=== PATIENT | female | born 1960 | race Two or more races ===

== ENCOUNTER 2017-09-08 13:32 | Outpatient (CLI) | payer OTHER ==
[~2017-09-08 13:32] MED LIST: AMBIEN CR12.5 MG/BL PO; AVAPRO300 MG; BISOPROLOL/HCTZ1 TA1; CELEBREX100 MG PO; CLONIDINE HCL0.1 MG; DIAZEPAM10 MG PO; DIOVAN HCT 320/1 TA1; INTESTINEX1 CA1 PO; KETO10TA2 PO; LIPITOR20 MG; METFORMIN HCL500 M2; METOPROLOL SUCC50 MG; MOTRIN800 MG PO; ORPH100T PO; PREDNISONE10 MG PO; SKELAXIN800 MG PO; TUSSIONEX PENNKI5 ML PO; VISTARIL50 MG PO; ZIAC 2.5-6.25 M1 TAB; ZITHROMAX500 MG PO
== END 2017-09-08 14:36 | disposition home or self-care (01) ==
LOC: RAD 501 13:32
DX: M19.90 Unspecified osteoarthritis, unspecified site (principal); M54.5 Low back pain

== ENCOUNTER 2017-12-19 08:41 | Outpatient (CLI) | payer OTHER | END 2017-12-19 08:57 | disposition home or self-care (01) | LOC: MAMO-SONO 08:41 | DX: Z12.31 Encounter for screening mammogram for malignant neoplasm of breast (principal); M81.0 Age-related osteoporosis without current pathological fracture ==

== ENCOUNTER 2017-12-19 11:10 | Outpatient (CLI) | payer OTHER | END 2017-12-19 11:20 | disposition home or self-care (01) | LOC: RAD 11:10 | DX: M54.2 Cervicalgia (principal) ==

== ENCOUNTER 2017-12-24 08:23 | Outpatient (CLI) | payer OTHER | END 2017-12-24 08:36 | disposition home or self-care (01) | LOC: SONOGRAMA 08:23 | DX: R10.2 Pelvic and perineal pain (principal) ==

== ENCOUNTER → 2018-01-27 | Emergency (ER) | payer OTHER ==
[~2018-01-27] VITALS: Ht 162.6 cm; Wt 77.1 kg
== END | disposition home or self-care (01) ==
LOC: ER 13:02
DX: B34.9 Viral infection, unspecified (principal)

== ENCOUNTER → 2018-07-02 | Emergency (ER) | payer OTHER ==
[~2018-07-02] VITALS: Ht 162.6 cm; Wt 77.1 kg
[~2018-07-02] MED LIST changes: +AVAPRO75 MG
== END | disposition left against medical advice (07) ==
LOC: ER 00:07
DX: Z53.20 Procedure and treatment not carried out because of patient's decision for unspecified reasons (principal)

== ENCOUNTER 2018-10-15 12:48 | Emergency (ER) | payer OTHER ==
[~2018-10-15] VITALS: Ht 340.4 cm; Wt 74.8 kg
[2018-10-15] MEDS ORDERED: AVAPRO75 MG (12:55)
== END 2018-10-15 14:23 | disposition home or self-care (01) ==
LOC: ER 12:48
DX: S80.01XA Contusion of right knee, initial encounter (principal); S30.0XXA Contusion of lower back and pelvis, initial encounter; W18.39XA Other fall on same level, initial encounter; Y93.89 Activity, other specified; Y92.69 Other specified industrial and construction area as the place of occurrence of the external cause; Y99.8 Other external cause status

== ENCOUNTER → 2019-03-21 | Emergency (ER) | payer OTHER ==
[~2019-03-21] VITALS: Ht 162.6 cm; Wt 79.4 kg
== END | disposition home or self-care (01) ==
LOC: ER 22:00
DX: R06.02 Shortness of breath (principal)

== ENCOUNTER 2020-10-25 08:59 | Emergency (ER) | payer OTHER ==
[~2020-10-25] VITALS: Ht 162.6 cm; Wt 77.1 kg
== END 2020-10-25 12:23 | disposition home or self-care (01) ==
LOC: ER 08:59
DX: R53.81 Other malaise (principal); R51.9 Headache, unspecified; Z11.52 Encounter for screening for COVID-19

== ENCOUNTER 2021-03-04 22:32 | Emergency (ER) | payer OTHER ==
[~2021-03-04] VITALS: Ht 162.6 cm; Wt 72.6 kg
== END 2021-03-05 00:04 | disposition home or self-care (01) ==
LOC: ER 22:32
DX: I16.0 Hypertensive urgency (principal)

== ENCOUNTER 2021-05-29 13:36 | Emergency (ER) | payer OTHER ==
[~2021-05-29] VITALS: Ht 162.6 cm; Wt 77.1 kg
[2021-05-29] MEDS ORDERED: BENZONATATE200 M1 PO (17:34)
== END 2021-05-29 17:45 | disposition home or self-care (01) ==
LOC: ER 13:36
DX: J06.9 Acute upper respiratory infection, unspecified (principal); Z03.818 Encounter for observation for suspected exposure to other biological agents ruled out; R51.9 Headache, unspecified; R05.9 Cough, unspecified

== ENCOUNTER 2022-01-14 08:01 | Emergency (ER) | payer OTHER ==
[~2022-01-14] VITALS: Ht 162.6 cm; Wt 72.6 kg
[~2022-01-14 08:01] MED LIST changes: +BENZONATATE200 M1 PO
== END 2022-01-14 10:53 | disposition home or self-care (01) ==
LOC: ER 08:01
DX: M94.0 Chondrocostal junction syndrome [Tietze] (principal); R07.89 Other chest pain; I10 Essential (primary) hypertension; E11.9 Type 2 diabetes mellitus without complications; Z79.84 Long term (current) use of oral hypoglycemic drugs

== ENCOUNTER 2022-04-15 08:00 | Outpatient (CLI) | payer OTHER | END 2022-04-15 08:01 | disposition home or self-care (01) | LOC: SONOGRAMA 08:00 | PROVIDERS: ATTEND Internal Medicine Gastroenterology | DX: R16.0 Hepatomegaly, not elsewhere classified (principal) ==

== ENCOUNTER 2023-02-04 20:57 | Emergency (ER) | payer OTHER ==
[~2023-02-04] VITALS: Ht 162.6 cm; Wt 74.8 kg
== END 2023-02-05 00:44 | disposition home or self-care (01) ==
LOC: ER 20:57
DX: I10 Essential (primary) hypertension (principal); G44.89 Other headache syndrome; Z20.822 Contact with and (suspected) exposure to COVID-19

== ENCOUNTER 2023-03-25 20:01 | Emergency (ER) | payer OTHER ==
[~2023-03-25] VITALS: Ht 162.6 cm; Wt 77.1 kg
== END 2023-03-25 22:31 | disposition home or self-care (01) ==
LOC: ER 20:01
PROVIDERS: Emergency Medicine
DX: I10 Essential (primary) hypertension (principal); E11.9 Type 2 diabetes mellitus without complications; Z79.84 Long term (current) use of oral hypoglycemic drugs; E78.00 Pure hypercholesterolemia, unspecified

== ENCOUNTER → 2023-04-03 | Emergency (ER) | payer OTHER ==
[~2023-04-03] VITALS: Ht 162.6 cm; Wt 74.8 kg
== END | disposition home or self-care (01) ==
LOC: ER 00:09
DX: I10 Essential (primary) hypertension (principal); E11.9 Type 2 diabetes mellitus without complications; Z79.84 Long term (current) use of oral hypoglycemic drugs

== ENCOUNTER 2024-09-10 10:52 | Outpatient (CLI) | payer OTHER | END 2024-09-10 10:59 | disposition home or self-care (01) | LOC: SONOGRAMA 10:52 | PROVIDERS: ATTEND Internal Medicine Gastroenterology | DX: R16.1 Splenomegaly, not elsewhere classified (principal) ==

== ENCOUNTER 2025-05-30 09:02 | Emergency (ER) | payer OTHER ==
[~2025-05-30] VITALS: Ht 162.6 cm; Wt 71.7 kg
[2025-05-30] MEDS ORDERED: KETOROLAC TROMETHAMINE 30 MG VIAL IM ONE (10:30)
[2025-05-30] MEDS ORDERED: ORPHENADRINE CITRATE 30 MG/ML AMPUL IM ONE (10:30)
[2025-05-30] MEDS ORDERED: ORPHENADRINE CITRATE 30 MG/ML AMPUL ONE (10:53)
[2025-05-30] MEDS ORDERED: KETOROLAC TROMETHAMINE 30 MG VIAL ONE (10:53)
== END 2025-05-30 14:58 | disposition home or self-care (01) ==
LOC: ER 09:03
DX: S30.0XXA Contusion of lower back and pelvis, initial encounter (principal); W18.39XA Other fall on same level, initial encounter; Y93.89 Activity, other specified; Y92.89 Other specified places as the place of occurrence of the external cause; Y99.9 Unspecified external cause status; M51.360 Other intervertebral disc degeneration, lumbar region with discogenic back pain only; E11.9 Type 2 diabetes mellitus without complications; Z79.84 Long term (current) use of oral hypoglycemic drugs; I10 Essential (primary) hypertension